=== PATIENT | female | born 1990 | race American Indian/Alaskan Native ===

== ENCOUNTER 2016-10-15 12:59 | Emergency (ER) | payer MEDICAID, OTHER ==
[2016-10-15 13:29] VITALS: BP 143/80
--- NOTE | 2016-10-15 14:19 | EDM.PDOC ---
[id number]: 18 WKS PREG, NO MOVEMENT 2 WKS Time Seen by Provider: 10/15/16 14:00 Source of Information: Reports: Patient History Limitations: Reports: No Limitations - History of Present Illness INITIAL COMMENTS - FREE TEXT/NARRATIVE: 26-year-old 5 para 4 female who is roughly 18 weeks gestation was feeling the baby move for the past week and a half but now has not had any movement for 2 days along with some spotting. No fevers or chills, no dysuria. Onset: Gradual (Over the past 2 days) Associated Symptoms: Reports: No Other Symptoms Lower Back Pain Score (Numeric/FACES): 6 - Related Data Allergies Allergy/AdvReac Type Severity Reaction Status Date / Time No Known Allergies Allergy Verified 10/15/16 13:30 Home Meds: Home Meds NK [No Known Home Meds] 02/29/16 [History] Past Medical History HEENT History: Reports: Impaired Vision Other HEENT History: wears glasses Respiratory History: Reports: Bronchitis, Recurrent Gastrointestinal History: Reports: Cholelithiasis PROSTHODONTIST History: Reports: , Other (See Below) Other OB/BYN History: early labor with 2nd. pregancy Musculoskeletal History: Reports: Fracture Other Musculoskeletal History: ankle Psychiatric History: Reports: Anxiety Hematologic History: Reports: Anemia - Past Surgical History HEENT Surgical History: Reports: None Respiratory Surgical History: Reports: None GI Surgical History: Reports: Cholecystectomy Musculoskeletal Surgical History: Reports: Other (See Below) Other Musculoskeletal Surgeries/Procedures:: broke left ankle at growth plate at age of 11 Dermatological Surgical History: Reports: None Social & Family History - Family History Family Medical History: Unobtainable - Tobacco Use Smoking Status *Q: Current Every Day Smoker Years of Tobacco use: 11 Packs/Tins Daily: 5 Used Tobacco, but Quit: No Second Hand Smoke Exposure: Yes - Caffeine Use Caffeine Use: Reports: Coffee, Tea - Recreational Drug Use Recreational Drug Use: No ED ROS GENERAL - Review of Systems Review Of Systems: See Below Constitutional: Denies: Fever Respiratory: Denies: Shortness of Breath, Cough Cardiovascular: Denies: Chest Pain GI/Abdominal: Denies: Abdominal Pain, Nausea, Vomiting Skin: Reports: No Symptoms Neurological: Denies: Headache ED EXAM - Physical Exam Exam: See Below Exam Limited By: No Limitations General Appearance: Alert, No Apparent Distress Respiratory/Chest: No Respiratory Distress GI/Abdominal Exam: Normal Bowel Sounds, Soft Heart Tones: Not Cotton Course - Vital Signs Last Recorded V/S: Last Vital Signs Temp 98 F 10/15/16 13:27 Pulse 75 10/15/16 13:27 Resp 16 10/15/16 13:27 BP 143/80 H 10/15/16 13:27 Pulse Ox 100 10/15/16 13:27 - Re-Assessments/Exams Free Text/Narrative Re-Assessment/Exam: 10/15/16 14:18 We attempted to find heart tones for reassurance but just weren't able to hear any. These would be expected to be found at 18 weeks. We will get an ultrasound to confirm the . 10/15/16 14:50 Ultrasound confirms a demise. This is discussed with the patient. I also discussed this with Kristin Suazo, who was marketing rotation associate for obstetrics. 10/15/16 15:23 Dr. Briones, OB on-call in [place] agreed to see the patient tomorrow morning to perform an induction. Patient will go to be admitted to [facility] in [place] at 7:30 AM. Departure - Departure Time of Disposition: 15:52 Disposition: Home, Self-Care 01 Condition: Good Clinical Impression: Incomplete , demise before 20 weeks with retention of fetus - Discharge Information Instructions: Miscarriage Referrals: PCP,None [Primary Care Provider] - Forms: ED Department Discharge Care Plan Goals: You need to go up to [facility] in [place] tomorrow morning to be admitted at 7:30 AM. If he started developing heavy bleeding or more pain, you may want to go up to [place] sooner and go through the emergency room.
--- NOTE | 2016-10-15 15:10 | US ---
OB Ltd 1 or More Fetus HISTORY: 18 weeks, spotting, no heart tones FINDINGS: A single intrauterine fetus is identified in right transverse presentation. No movement for ca rdiac activity is identified. No color Doppler blood flow is seen in the fetus. Amniotic fluid appea rs normal. The placenta is posterior with no evidence for placenta previa or abruption. measur ements correspond with an EGA of 16 weeks 4 days gestation. Menstrual age is 19 weeks 2 days. IMPRESSION: Intrauterine demise as above. Findings were given to Dr. Walters at the time of the exam..
== END 2016-10-15 15:53 | disposition home or self-care (01) ==
LOC: JP.ED 12:59
DX: O03.4 Incomplete spontaneous abortion without complication (principal); F17.210 Nicotine dependence, cigarettes, uncomplicated; Z90.49 Acquired absence of other specified parts of digestive tract
CPT/HCPCS: 76815; 76815-26; 99283

== ENCOUNTER 2016-11-16 13:00 | Emergency (ER) | payer MEDICAID, OTHER ==
--- NOTE | 2016-11-16 14:06 | EDM.PDOC ---
ED HPI GENERAL MEDICAL PROBLEM - General Chief Complaint: EXERCISE PHYSIOLOGIST CERTIFIED Problem Stated Complaint: EXCESSIVE BLEEDING Time Seen by Provider: 11/16/16 13:57 Source of Information: Reports: Patient History Limitations: Reports: No Limitations - History of Present Illness INITIAL COMMENTS - FREE TEXT/NARRATIVE: pt arrived with increased vag bleeding and abdomanal pain. She delivered a 18 week preg which did not survive about 1 month ago. Onset: Other ( last 2 days. ) Duration: Day(s):, Getting Worse Location: Reports: Abdomen, Other (pt is having pain in her loqwer abdoman. ) Associated Symptoms: Reports: Weakness, Other ( pt has generalized body aches. ) - Related Data Allergies Allergy/AdvReac Type Severity Reaction Status Date / Time No Known Allergies Allergy Verified 11/16/16 13:42 Home Meds: Home Meds NK [No Known Home Meds] 02/29/16 [History] Past Medical History HEENT History: Reports: Impaired Vision Other HEENT History: wears glasses Respiratory History: Reports: Bronchitis, Recurrent Gastrointestinal History: Reports: Cholelithiasis EXERCISE PHYSIOLOGIST CERTIFIED History: Reports: , Other (See Below) Other OB/BYN History: early labor with 2nd. pregancy Musculoskeletal History: Reports: Fracture Other Musculoskeletal History: ankle Psychiatric History: Reports: Anxiety Hematologic History: Reports: Anemia - Past Surgical History GI Surgical History: Reports: Cholecystectomy Musculoskeletal Surgical History: Reports: Other (See Below) Other Musculoskeletal Surgeries/Procedures:: broke left ankle at growth plate at age of 11 Social & Family History - Family History Family Medical History: Unobtainable - Tobacco Use Smoking Status *Q: Current Every Day Smoker Years of Tobacco use: 12 Packs/Tins Daily: 0.5 Used Tobacco, but Quit: No Second Hand Smoke Exposure: Yes - Caffeine Use Caffeine Use: Reports: Coffee, Soda - Recreational Drug Use Recreational Drug Use: No ED ROS GENERAL - Review of Systems Review Of Systems: See Below Constitutional: Reports: Chills, Other (pt feels like she has chills at times. ) HEENT: Reports: No Symptoms Respiratory: Reports: No Symptoms Cardiovascular: Reports: No Symptoms Endocrine: Reports: No Symptoms GI/Abdominal: Reports: Abdominal Pain, Other (pt feels like he hs increased discomfort over her lower abdoman. She feels achy all over and has had chills at times. She is passing large clots which is new for her Yesterday she pass some solid material that looked like tissue. ) : Reports: No Symptoms Musculoskeletal: Reports: No Symptoms Skin: Reports: No Symptoms Neurological: Reports: No Symptoms ED EXAM - Physical Exam Exam: See Below Text/Narrative:: Pt is uncomfortable in her lower abdoman. She delivered 1 mo ago a 18 week preg which did not survive. Exam Limited By: No Limitations General Appearance: Alert, Anxious, Moderate Distress Ears: Normal TMs Nose: Normal Inspection Throat/Mouth: Normal Inspection Head: Atraumatic Neck: Normal Inspection Respiratory/Chest: No Respiratory Distress Cardiovascular: Regular Rate, Rhythm GI/Abdominal Exam: Tender, Other (Pt has difuse tenderness accross the lower abdoman. ) Rectal Exam: Deferred (Female) Exam: Other ( A pelvic exam was done on the pt. She had no tissue present. She had passed some large clots in the bathroom while she was here. She was markedly tender on pelvic exam when her cervix was moved. She was bleeding generously. ) Course - Vital Signs Last Recorded V/S: Last Vital Signs Temp 36.3 C 11/16/16 13:43 Pulse 101 H 11/16/16 16:33 Resp 16 11/16/16 13:25 BP 123/89 11/16/16 16:33 Pulse Ox 100 11/16/16 16:33 - Orders/Labs/Meds Orders: Active Orders 24 hr Category Date Time Status Pelvis Non OB Comp [US] Stat Exams 11/16/16 14:07 Taken Transvaginal Non OB [US] Stat Exams 11/16/16 14:07 Taken Labs: Laboratory Tests 11/16/16 11/16/16 11/16/16 Range/Units 14:12 14:12 15:05 WBC 10.9 (4.5-11.0) K/uL RBC 4.68 (3.30-5.50) M/uL Hgb 10.2 L (12.0-15.0) g/dL Hct 33.1 L (36.0-48.0) % MCV 71 L (80-98) fL MCH 22 L (27-31) pg MCHC 31 L (32-36) % Plt Count 414 H (150-400) K/uL Neut % (Auto) 68 H (36-66) % Lymph % (Auto) 23 L (24-44) % [place] % (Auto) 6 (2-6) % Eos % (Auto) 3 (2-4) % Baso % (Auto) 0 (0-1) % Sodium 141 (140-148) mmol/L Potassium 3.6 (3.6-5.2) mmol/L Chloride 108 (100-108) mmol/L Carbon Dioxide 27 (21-32) mmol/L Anion Gap 5.8 (5.0-14.0) mmol/L BUN 8 (7-18) mg/dL Creatinine 0.8 (0.6-1.0) mg/dL Est Cr Clr Drug Dosing 101.81 mL/min Estimated GFR (MDRD) > 60 (>60) Glucose 89 (74-106) mg/dL Calcium 8.4 L (8.5-10.1) mg/dL Total Bilirubin 0.2 D (0.2-1.0) mg/dL AST 15 (15-37) U/L ALT 24 (12-78) U/L Alkaline Phosphatase 90 (46-116) U/L C-Reactive Protein (0.0-0.3) mg/dL Total Protein 7.4 (6.4-8.2) g/dL Albumin 3.3 L (3.4-5.0) g/dL Globulin 4.1 H (2.3-3.5) g/dL Albumin/Globulin Ratio 0.8 L (1.2-2.2) Urine Color Red Urine Appearance Turbid Urine pH 5.0 (4.5-8.0) Ur Specific [place] 1.010 (1.008-1.030) Urine Protein 30 H (NEGATIVE) mg/dL Urine Glucose (UA) Normal (NEGATIVE) mg/dL Urine Ketones Negative (NEGATIVE) mg/dL Urine Occult Blood Large (NEGATIVE) Urine Nitrite Negative (NEGATIVE) Urine Bilirubin Negative (NEGATIVE) Urine Urobilinogen Normal (NORMAL) mg/dL Ur Leukocyte Esterase Negative (NEGATIVE) Urine RBC Packed H (0-5) Urine WBC 10-20 H (0-5) Ur Epithelial Cells Few Amorphous Sediment Few Urine Bacteria Many Urine Mucus Few 11/16/16 Range/Units 15:11 WBC (4.5-11.0) K/uL RBC (3.30-5.50) M/uL Hgb (12.0-15.0) g/dL Hct (36.0-48.0) % MCV (80-98) fL MCH (27-31) pg MCHC (32-36) % Plt Count (150-400) K/uL Neut % (Auto) (36-66) % Lymph % (Auto) (24-44) % [place] % (Auto) (2-6) % Eos % (Auto) (2-4) % Baso % (Auto) (0-1) % Sodium (140-148) mmol/L Potassium (3.6-5.2) mmol/L Chloride (100-108) mmol/L Carbon Dioxide (21-32) mmol/L Anion Gap (5.0-14.0) mmol/L BUN (7-18) mg/dL Creatinine (0.6-1.0) mg/dL Est Cr Clr Drug Dosing mL/min Estimated GFR (MDRD) (>60) Glucose (74-106) mg/dL Calcium (8.5-10.1) mg/dL Total Bilirubin (0.2-1.0) mg/dL AST (15-37) U/L ALT (12-78) U/L Alkaline Phosphatase (46-116) U/L C-Reactive Protein 1.28 H (0.0-0.3) mg/dL Total Protein (6.4-8.2) g/dL Albumin (3.4-5.0) g/dL Globulin (2.3-3.5) g/dL Albumin/Globulin Ratio (1.2-2.2) Urine Color Urine Appearance Urine pH (4.5-8.0) Ur Specific [place] (1.008-1.030) Urine Protein (NEGATIVE) mg/dL Urine Glucose (UA) (NEGATIVE) mg/dL Urine Ketones (NEGATIVE) mg/dL Urine Occult Blood (NEGATIVE) Urine Nitrite (NEGATIVE) Urine Bilirubin (NEGATIVE) Urine Urobilinogen (NORMAL) mg/dL Ur Leukocyte Esterase (NEGATIVE) Urine RBC (0-5) Urine WBC (0-5) Ur Epithelial Cells Amorphous Sediment Urine Bacteria Urine Mucus Meds: Medications Discontinued Medications Generic Name Dose Route Start Last Admin Trade Name Freq PRN Reason Stop Dose Admin Ceftriaxone Sodium 1 gm/ 0 gm 11/16/16 15:41 11/16/16 15:57 Lidocaine HCl 2.1 ml IM 11/16/16 15:42 1 inj ONETIME ONE Administration - Re-Assessments/Exams Free Text/Narrative Re-Assessment/Exam: 11/17/16 07:25 A US was obtained which did not reveal signs of a large amount of retained tissue. Her wbc was not elevated. Her hg was in the 10 range. 11/17/16 07:26 Her urine did have alot of bacteria, the nitrite was neg. Departure - Departure Time of Disposition: 15:37 Disposition: Home, Self-Care 01 Condition: Fair Clinical Impression: Endometritis following delivery, Anemia - Discharge Information Instructions: Anemia, Nonspecific, Endometriosis Referrals: Nivia Rodríguez PA [Primary Care Provider] - Forms: ED Department Discharge Care Plan Goals: appt with regular obgyn on Friday or Friday, a copy of Us to go with pt. augmentin 875 1 tab bid for 10 days., rtc if bleeding should get heavier, norco 5/325 q6h prn for severe pain #6, otherwise use tylenol or motrin. - My Orders Last 24 Hours: My Active Orders 11/16/16 14:07 Pelvis Non OB Comp [US] Stat Transvaginal Non OB [US] Stat - Assessment/Plan Last 24 Hours: My Active Orders 11/16/16 14:07 Pelvis Non OB Comp [US] Stat Transvaginal Non OB [US] Stat
[2016-11-16] MEDS ORDERED: cefTRIAXone 1 GM, Lidocaine 1% 2.1 ML IM ONE ×2 (15:41)
[2016-11-16 16:34] VITALS: BP 123/89
== END 2016-11-16 17:15 | disposition home or self-care (01) ==
LOC: JP.ED 13:00
DX: O86.12 Endometritis following delivery (principal); D64.9 Anemia, unspecified; F17.210 Nicotine dependence, cigarettes, uncomplicated; F41.9 Anxiety disorder, unspecified; Z90.49 Acquired absence of other specified parts of digestive tract; Z3A.18 18 weeks gestation of pregnancy
CPT/HCPCS: 36415; 76830; 76856; 80053; 81001; 85025; 86140; 96372; 99284; J0696

== ENCOUNTER 2017-02-23 15:00 | Emergency (ER) | payer MEDICAID, OTHER ==
[2017-02-23 15:24] VITALS: BP 137/74
--- NOTE | 2017-02-23 16:02 | EDM.PDOC ---
ED HPI GENERAL MEDICAL PROBLEM - General Chief Complaint: AUDITOR/QUALITY Problem Stated Complaint: PELVIC PAIN Time Seen by Provider: 02/23/17 16:02 Source of Information: Reports: Patient History Limitations: Reports: No Limitations - History of Present Illness INITIAL COMMENTS - FREE TEXT/NARRATIVE: pt notes swelling of the rt labia. She is tender at the pelvic rim. She has not had a fever. She has noted some cramping in the abdoman. Onset: Gradual Duration: Day(s): Location: Reports: Other ( swelling of the rt labia. ) Associated Symptoms: Reports: No Other Symptoms Pelvic Pain Score (Numeric/FACES): 4 - Related Data Allergies Allergy/AdvReac Type Severity Reaction Status Date / Time No Known Allergies Allergy Verified 11/16/16 13:42 Home Meds: Home Meds NK [No Known Home Meds] 02/29/16 [History] Past Medical History HEENT History: Reports: Impaired Vision Other HEENT History: wears glasses Respiratory History: Reports: Bronchitis, Recurrent Gastrointestinal History: Reports: Cholelithiasis AUDITOR/QUALITY History: Reports: , Other (See Below) Other OB/BYN History: early labor with 2nd. pregancy, pt. had miscarriage in at 18 weeks Musculoskeletal History: Reports: Fracture Other Musculoskeletal History: ankle Psychiatric History: Reports: Anxiety Hematologic History: Reports: Anemia - Past Surgical History GI Surgical History: Reports: Cholecystectomy Musculoskeletal Surgical History: Reports: Other (See Below) Other Musculoskeletal Surgeries/Procedures:: broke left ankle at growth plate at age of 11 Dermatological Surgical History: Reports: None Social & Family History - Family History Family Medical History: Unobtainable - Tobacco Use Smoking Status *Q: Current Every Day Smoker Years of Tobacco use: 12 Packs/Tins Daily: 1 Used Tobacco, but Quit: No Second Hand Smoke Exposure: Yes - Caffeine Use Caffeine Use: Reports: Coffee, Soda - Recreational Drug Use Recreational Drug Use: No ED ROS GENERAL - Review of Systems Review Of Systems: See Below Constitutional: Reports: No Symptoms HEENT: Reports: No Symptoms Respiratory: Reports: No Symptoms Cardiovascular: Reports: No Symptoms Endocrine: Reports: No Symptoms GI/Abdominal: Reports: No Symptoms : Reports: Other ( swelling of the rt labia. ) Musculoskeletal: Reports: No Symptoms Skin: Reports: No Symptoms Neurological: Reports: No Symptoms ED EXAM, GI/ABD - Physical Exam Exam: See Below Text/Narrative:: pt has crampy abdomanal pain, she has no change in discharge. She has swelling of the rt labia. Exam Limited By: No Limitations General Appearance: Alert, Anxious Eyes: Bilateral: Normal Appearance, EOMI Ears: Normal TMs Nose: Normal Inspection Throat/Mouth: Normal Inspection Head: Atraumatic Neck: Normal Inspection Respiratory/Chest: No Respiratory Distress Cardiovascular: Regular Rate, Rhythm GI/Abdominal Exam: Other ( soft minimal tenderness) (Female) Exam: Deferred Rectal (Female) Exam: Deferred Back Exam: Normal Inspection Course - Vital Signs Last Recorded V/S: Last Vital Signs Temp 36.9 C 02/23/17 15:26 Pulse 72 02/23/17 15:26 Resp 16 02/23/17 15:26 BP 137/74 02/23/17 15:26 Pulse Ox 99 02/23/17 15:26 - Orders/Labs/Meds Orders: Active Orders 24 hr Category Date Time Status CULTURE URINE [RM] Stat Lab 02/23/17 17:20 Uncollected Labs: Laboratory Tests 02/23/17 02/23/17 Range/Units 16:33 16:39 WBC 11.1 H (4.5-11.0) K/uL RBC 4.75 (3.30-5.50) M/uL Hgb 9.5 L (12.0-15.0) g/dL Hct 31.6 L (36.0-48.0) % MCV 67 L (80-98) fL MCH 20 L (27-31) pg MCHC 30 L (32-36) % Plt Count 487 H (150-400) K/uL Neut % (Auto) 64 (36-66) % Lymph % (Auto) 27 (24-44) % [place] % (Auto) 7 H (2-6) % Eos % (Auto) 1 L (2-4) % Baso % (Auto) 0 (0-1) % Urine Color Yellow Urine Appearance Cloudy Urine pH 7.0 (4.5-8.0) Ur Specific [employer] [employer] 1.010 (1.008-1.030) Urine Protein Negative (NEGATIVE) mg/dL Urine Glucose (UA) Normal (NEGATIVE) mg/dL Urine Ketones Negative (NEGATIVE) mg/dL Urine Occult Blood Negative (NEGATIVE) Urine Nitrite Negative (NEGATIVE) Urine Bilirubin Negative (NEGATIVE) Urine Urobilinogen Normal (NORMAL) mg/dL Ur Leukocyte Esterase Moderate (NEGATIVE) Urine RBC 0-5 (0-5) Urine WBC 5-10 H (0-5) Ur Epithelial Cells Few Amorphous Sediment Rare Urine Bacteria Few Urine Mucus Few Urine Other See note - Re-Assessments/Exams Free Text/Narrative Re-Assessment/Exam: 02/23/17 17:24 pt did not have a sig wbc elevation. Her melissa was positive, Her urine had a few wbcs and this was cultured. Departure - Departure Time of Disposition: 16:27 Disposition: Home, Self-Care 01 Condition: Fair Clinical Impression: Yeast infection, Labial swelling - Discharge Information Instructions: Vaginal Yeast Infection, Adult Referrals: PCP,None [Primary Care Provider] - Forms: ED Department Discharge Care Plan Goals: tub soak twice daily monostat vag cream, difluran 100mg 1 tab now, have her own provider check on wed when she is seen. - My Orders Last 24 Hours: My Active Orders 02/23/17 17:20 CULTURE URINE [RM] Stat - Assessment/Plan Last 24 Hours: My Active Orders 02/23/17 17:20 CULTURE URINE [RM] Stat
== END 2017-02-23 17:30 | disposition home or self-care (01) ==
LOC: JP.ED 15:00
DX: B37.3 Candidiasis of vulva and vagina (principal); F17.210 Nicotine dependence, cigarettes, uncomplicated
CPT/HCPCS: 36415; 81001; 85025; 87210; 99284

== ENCOUNTER 2018-04-14 17:49 | Emergency (ER) | payer OTHER ==
[2018-04-14] MEDS ORDERED: Bupivacaine 0.5% 10 ML SDV INJECT ONE (17:51)
[2018-04-14 17:54] VITALS: BP 132/69
--- NOTE | 2018-04-14 18:32 | EDM.PDOC ---
ED HPI GENERAL MEDICAL PROBLEM - General Chief Complaint: Laceration Stated Complaint: SLAMMED FINGER IN DOOR Time Seen by Provider: 04/14/18 18:05 Source of Information: Reports: Patient, EMS History Limitations: Reports: No Limitations - History of Present Illness INITIAL COMMENTS - FREE TEXT/NARRATIVE: 27-year-old female slammed the middle finger of her left hand in a sliding van door. She sustained a crush injury and laceration to the distal finger. No other injury. Onset: Sudden Duration: Hour(s): (Within the last 2 hours) Location: Reports: Upper Extremity, Left Associated Symptoms: Reports: No Other Symptoms Left Finger-Middle Pain Score (Numeric/FACES): 0 - Related Data Allergies Allergy/AdvReac Type Severity Reaction Status Date / Time No Known Allergies Allergy Verified 04/14/18 17:51 Home Meds: Home Meds NK [No Known Home Meds] 02/29/16 [History] Past Medical History HEENT History: Reports: Impaired Vision Other HEENT History: wears glasses Respiratory History: Reports: Bronchitis, Recurrent Gastrointestinal History: Reports: Cholelithiasis [employer] History: Reports: , Other (See Below) Other [employer] History: early labor with 2nd. pregancy, pt. had miscarriage in at 18 weeks Musculoskeletal History: Reports: Fracture Other Musculoskeletal History: ankle Psychiatric History: Reports: Anxiety Hematologic History: Reports: Anemia - Past Surgical History GI Surgical History: Reports: Cholecystectomy Musculoskeletal Surgical History: Reports: Other (See Below) Other Musculoskeletal Surgeries/Procedures:: broke left ankle at growth plate at age of 11 Social & Family History - Family History Family Medical History: Unobtainable - Tobacco Use Smoking Status *Q: Current Every Day Smoker Years of Tobacco use: 12 Packs/Tins Daily: 0.5 Second Hand Smoke Exposure: Yes - Caffeine Use Caffeine Use: Reports: Coffee - Recreational Drug Use Recreational Drug Use: No ED ROS GENERAL - Review of Systems Review Of Systems: See Below Constitutional: Denies: Fever, Chills Respiratory: Denies: Shortness of Breath Cardiovascular: Denies: Chest Pain GI/Abdominal: Denies: Nausea, Vomiting Psychiatric: Reports: Anxiety ED EXAM, SKIN/RASH Exam: See Below Exam Limited By: No Limitations General Appearance: Alert, Anxious Respiratory/Chest: No Respiratory Distress Extremities: Other (Remainder of exam is limited to the left hand. The middle finger has a distal crush injury, the nail partially avulsed, and has obvious trauma to the nail bed. After the nail was removed there was a 1 cm transverse and somewhat arced nailbed laceration) Course - Vital Signs Last Recorded V/S: Last Vital Signs Temp 99.0 F 04/14/18 19:05 Pulse 111 H 04/14/18 19:05 Resp 16 04/14/18 19:05 BP 132/69 04/14/18 19:05 Pulse Ox 97 04/14/18 19:05 - Orders/Labs/Meds Orders: Active Orders 24 hr Category Date Time Status Fingers Third Digit Lt F2 [CR] Stat Exams 04/14/18 18:28 Taken Fingers Third Digit Lt F2 [CR] Stat Exams 04/14/18 18:28 Taken Meds: Medications Discontinued Medications Generic Name Dose Route Start Last Admin Trade Name Freq PRN Reason Stop Dose Admin Bacitracin 1 dose 04/14/18 18:33 04/14/18 18:49 Bacitracin Oint 1 Gm TOP 04/14/18 18:34 1 dose ONETIME ONE Administration Bupivacaine HCl 10 ml 04/14/18 17:51 04/14/18 18:29 Sensorcaine-Mpf 0.5% INJECT 04/14/18 17:52 10 ml ONETIME ONE Administration - Re-Assessments/Exams Free Text/Narrative Re-Assessment/Exam: 04/14/18 18:31 An x-ray of the finger was taken which showed a displaced distal fracture of the tuft of the middle finger. During repair a Marcaine digital block was done, the wound was cleaned thoroughly, and attempt to reduce the fracture and realign the nail bed was made. This was done after the fingernail was removed. 3 6-0 Vicryl sutures were used to reapproximate the nail bed, and with a 3-0 Ethilon suture the nail was replaced. A post reduction and post repair x-ray was obtained. 04/14/18 19:00 Post reduction x-ray looks real good, the tuft is near anatomical with its reduction. She'll be placed on cephalexin 500 3 times a day, asked to use anti- inflammatories for pain control and given 10 extra [place] for breakthrough pain. A tube gauze was placed on the finger now have her recheck with orthopedics tomorrow. Departure - Departure Time of Disposition: 19:19 Disposition: Home, Self-Care 01 Condition: Good Clinical Impression: Fracture of phalanx of digit of hand Qualifiers: Encounter type: initial encounter Fracture type: open Qualified Code(s): S62.609B - Fracture of unspecified phalanx of unspecified finger, initial encounter for open fracture Nailbed laceration, finger Qualifiers: Encounter type: initial encounter Qualified Code(s): S61.319A - Laceration without foreign body of unspecified finger with damage to nail, initial encounter - Discharge Information Instructions: Laceration Care, Adult Referrals: PCP,None [Primary Care Provider] - Forms: ED Department Discharge Care Plan Goals: Call the orthopedic clinic tomorrow morning to get a follow-up time to recheck her finger with [facility]. Take antibiotic as prescribed, a regular dose of ibuprofen or naproxen will help and add stronger pain medications if needed. - My Orders Last 24 Hours: My Active Orders 04/14/18 18:28 Fingers Third Digit Lt F2 [CR] Stat Fingers Third Digit Lt F2 [CR] Stat - Assessment/Plan Last 24 Hours: My Active Orders 04/14/18 18:28 Fingers Third Digit Lt F2 [CR] Stat Fingers Third Digit Lt F2 [CR] Stat
[2018-04-14] MEDS ORDERED: Bacitracin Oint 1 GM U/D Packet TOP ONE (18:33)
--- NOTE | 2018-04-15 10:50 | CRLCR ---
INDICATION: Status post fracture terminal phalanx left 3rd finger; status post reduction. Comparison: Radiographic examination of the left 3rd finger same day at 6:01 p.m. Findings: Fracture involving the tuft of the terminal phalanx of the left 3rd finger with better opposition when compared to the pre reduction radiographs. There is evidence of comminution. Impression : Fracture tuft the terminal phalanx left 3rd finger with better opposition when compared to the pre reduction film. Dictated by Pam Asencio MD @ Apr 15 2018 10:09AM Signed by Dr. Pam Asencio @ Apr 15 2018 10:12AM
== END 2018-04-14 19:19 | disposition home or self-care (01) ==
LOC: JP.ED 17:49
DX: S62.633A Displaced fracture of distal phalanx of left middle finger, initial encounter for closed fracture (principal); S61.312A Laceration without foreign body of right middle finger with damage to nail, initial encounter; F17.210 Nicotine dependence, cigarettes, uncomplicated; X58.XXXA Exposure to other specified factors, initial encounter
CPT/HCPCS: 11760; 26755; 73140; 99284; J3490

== ENCOUNTER 2020-06-01 22:13 | Emergency (ER) | payer MEDICAID ==
[2020-06-01] MEDS ORDERED: Bupivacaine 0.5%/EPINEPHrine 1:200,000 1.8 ML Cartridge INJECT ONE (22:28)
--- NOTE | 2020-06-01 22:28 | EDM.PDOC ---
ED HPI GENERAL MEDICAL PROBLEM - General Chief Complaint: ENT Problem Stated Complaint: TOOTH PAIN Time Seen by Provider: 06/01/20 22:25 Source of Information: Reports: Patient, Old Records History Limitations: Reports: No Limitations - History of Present Illness INITIAL COMMENTS - FREE TEXT/NARRATIVE: Nivia is a 29-year-old female to the ED for evaluation of dental pain and swelling. The patient states that she has been having on and off issues with the #32 and was seen in the clinic on Friday at which time she was started on Augmentin. The tooth pain is continued to worsen to the point now where she has a hard time chewing, swallowing, or sleeping. She is able to swallow without difficulty except for the shooting stabbing pain. He is able to handle her secretions without difficulty. She does have a history for dental pain in this tooth prior. She has not been able to get into the dentist in [place] as they are months out from seeing patients. She is not been able to get into emergency dentistry either. Denies any fever or chills, cough or shortness of breath, chest pain or back pain. Right Oral/Mouth Pain Score (Numeric/FACES): 9 - Related Data Allergies Allergy/AdvReac Type Severity Reaction Status Date / Time No Known Allergies Allergy Verified 04/14/18 17:51 Home Meds: Home Meds NK [No Known Home Meds] 02/29/16 [History] Past Medical History HEENT History: Reports: Impaired Vision Other HEENT History: wears glasses Respiratory History: Reports: Bronchitis, Recurrent Gastrointestinal History: Reports: Cholelithiasis TUBE WINDER History: Reports: , Other (See Below) Other TUBE WINDER History: early labor with 2nd. pregancy, pt. had miscarriage in 10/24 at 18 weeks Musculoskeletal History: Reports: Fracture Other Musculoskeletal History: ankle Psychiatric History: Reports: Anxiety Hematologic History: Reports: Anemia - Past Surgical History GI Surgical History: Reports: Cholecystectomy Musculoskeletal Surgical History: Reports: Other (See Below) Other Musculoskeletal Surgeries/Procedures:: broke left ankle at growth plate at age of 11 Social & Family History - Family History Family Medical History: Unobtainable - Caffeine Use Caffeine Use: Reports: Coffee ED ROS ENT - Review of Systems Review Of Systems: See Below Constitutional: Reports: No Symptoms HEENT: Reports: Dental Pain Respiratory: Reports: No Symptoms Cardiovascular: Reports: No Symptoms Endocrine: Reports: No Symptoms GI/Abdominal: Reports: No Symptoms : Reports: No Symptoms Musculoskeletal: Reports: No Symptoms Skin: Reports: No Symptoms Neurological: Reports: No Symptoms Psychiatric: Reports: No Symptoms Hematologic/Lymphatic: Reports: No Symptoms Immunologic: Reports: No Symptoms ED EXAM, ENT - Physical Exam Exam: See Below Exam Limited By: No Limitations General Appearance: Alert, Moderate Distress Eye Exam: Bilateral Eye: EOMI, PERRL Mouth/Throat: Normal Lips, Normal Oropharynx, Dental Pain (Pain and swelling around tooth #32. There is no visible abscess to I&D. There is no significant gingival erythema but there is swelling.), Dental Tenderness Head: Atraumatic, Normocephalic Neck: Normal Inspection, Supple, Non-Tender, Full Range of Motion. No: Lymphadenopathy (R), Lymphadenopathy (L) Respiratory/Chest: No Respiratory Distress, Lungs Clear, Normal Breath Sounds Course - Orders/Labs/Meds Meds: Medications Discontinued Medications Generic Name Dose Route Start Last Admin Trade Name Bernardq PRN Reason Stop Dose Admin Bupivacaine HCl/Epinephrine Bitart 1.8 ml 06/01/20 22:28 Bupivacaine 0.5%/Epinephrine 1:200,000 1.8 Ml Cartridge INJECT 06/01/20 22:29 ONETIME ONE Clindamycin HCl 300 mg 06/01/20 22:29 Clindamycin Hcl 150 Mg Cap PO 06/01/20 22:30 ONETIME ONE - Re-Assessments/Exams Free Text/Narrative Re-Assessment/Exam: 06/01/20 22:39 I discussed treatment options with the patient and we have elected for a right inferior alveolar dental block temp to get the pain under control of tooth #32. In addition, we will switch her antibiotic from Augmentin to clindamycin 300 mg 3 times daily. I will also send her out with prescription for Toradol 10 mg 4 times daily and a few hydrocodone 5/325 mg tablets #4 for breakthrough pain. We will also place a referral to the [facility] dental clinic. This will hopefully be a shorter wait time then through [place] or [facility]. Departure - Departure Time of Disposition: 22:53 Disposition: Home, Self-Care 01 Clinical Impression: Dental abscess - Discharge Information *PRESCRIPTION DRUG MONITORING PROGRAM REVIEWED*: Yes *COPY OF PRESCRIPTION DRUG MONITORING REPORT IN PATIENT JORGITO: No Instructions: Dental Abscess, [id number] Referrals: Karuna Lira CHIEF CARDIOPULMONARY TECHNOLOGIST [Primary Care Provider] - Forms: ED Department Discharge Care Plan Goals: Dental block should with lasted least 24 to 48 hours. Hopefully during this time the antibiotic will have kicked in enough to reduce the swelling and pain. I have prescribed Toradol 10 mg every 6 hours for pain control. You may use 1 hydrocodone for moderate to severe pain if the Toradol is not adequately controlling your symptoms. I have placed a referral for you to be seen in the [facility] dental clinic. - Problem List & Annotations (1) Dental abscess SNOMED Code(s): 006687781 Code(s): K04.7 - PERIAPICAL ABSCESS WITHOUT SINUS Status: Acute Priority: Medium Current Visit: Yes - Problem List Review Problem List Initiated/Reviewed/Updated: Yes
[2020-06-01] MEDS ORDERED: Clindamycin HCl 150 MG Cap PO ONE (22:29)
[2020-06-01 22:40] VITALS: BP 145/78; PULSE 81
== END 2020-06-01 23:13 | disposition home or self-care (01) ==
LOC: JP.ED 22:13
DX: K04.7 Periapical abscess without sinus (principal); Z90.49 Acquired absence of other specified parts of digestive tract
CPT/HCPCS: 64400; 99282; A9270; J3490

== ENCOUNTER 2020-10-28 22:23 | Emergency (ER) | payer MEDICAID ==
[2020-10-28 22:38] VITALS: BP 135/86; PULSE 80
--- NOTE | 2020-10-29 00:33 | CRLCT ---
For Patients: As a result of the Cures Act, medical imaging exams and procedure reports are released immediately into your electronic medical record. You may view this report before your referring provider. If you have questions, please contact your health care provider. INDICATION: Left lower abdominal pain. CT ABDOMEN AND PELVIS WITHOUT CONTRAST TECHNIQUE: Multidetector CT imaging was performed through the abdomen and pelvis without intravenous contrast administration. Coronal and sagittal reconstructions were generated. COMPARISON: None. FINDINGS: Lower chest: Lung bases are clear. Liver: Within normal limits. Gallbladder and bile ducts: Status post cholecystectomy. No biliary dilation identified. Pancreas: Unremarkable. Spleen: Normal. Adrenals: No nodules or masses. Kidneys, ureters, and urinary bladder: No urinary tract stones or hydronephrosis. Small hypodensity at the lower pole of the right kidney likely representing a cyst. No bladder mass or definite wall thickening. Gastrointestinal tract and abdominal wall: Normal caliber small bowel without wall thickening or obstruction. The appendix is normal. There are scattered colon diverticula without evidence of diverticulitis. Very small fat-containing umbilical hernia. Vascular structures: Normal for age. Peritoneum: No free air, abscess, or significant free fluid. Lymph nodes: No pathologically enlarged nodes identified. Reproductive organs: Status post hysterectomy. No pelvic masses. Bones: Mild degenerative disc disease at L5-S1. IMPRESSION: 1. No acute abnormality identified. No urinary tract stones or hydronephrosis. No cause for the patient`s symptoms is demonstrated. 2. Nonacute findings as detailed above. ANALIA THOMPSON MD [employer] Dictated by Dexter Thompson MD @ 10/29/2020 12:30:43 AM Please note that all CT scans at this facility use dose modulation, iterative reconstruction, and/or weight-based dosing when appropriate to reduce radiation dose to as low as reasonably achievable. Dictated by: Dexter Thompson MD @ 10/29/2020 00:32:44 (Electronically Signed)
--- NOTE | 2020-10-29 00:49 | EDM.PDOC ---
ED HPI GENERAL MEDICAL PROBLEM - General Chief Complaint: Gastrointestinal Problem Stated Complaint: DIVERTICULITIS, NAUSEA Time Seen by Provider: 10/28/20 23:45 Source of Information: Reports: Patient, Family History Limitations: Reports: No Limitations - History of Present Illness INITIAL COMMENTS - FREE TEXT/NARRATIVE: 30-year-old female with a chronic persistent lower abdominal pain, worsening especially on the left side. She does have a history of endometriosis and diverticulosis, she was at the urgent care clinic yesterday and urine was negative. A CT scan 2 months ago was negative other than diverticulosis. No fevers or chills, no significant bowel changes such as diarrhea or constipation. Onset: Gradual Duration: Week(s):, Chronic Location: Reports: Abdomen (Especially the lower abdomen, particularly the left side) Associated Symptoms: Reports: Malaise. Denies: Chest Pain, Cough, Fever/Chills, Headaches, Loss of Appetite, Nausea/Vomiting, Shortness of Breath Left Lower Abdomen Pain Score (Numeric/FACES): 5 - Related Data Allergies Allergy/AdvReac Type Severity Reaction Status Date / Time No Known Allergies Allergy Verified 10/28/20 23:31 Home Meds: Home Meds NK [No Known Home Meds] 02/29/16 [History] Past Medical History HEENT History: Reports: Impaired Vision Other HEENT History: wears glasses Respiratory History: Reports: Bronchitis, Recurrent Gastrointestinal History: Reports: Cholelithiasis DOG DAY CARE ATTENDANT History: Reports: , Spontaneous , Other (See Below) Other DOG DAY CARE ATTENDANT History: early labor with 2nd. pregancy, pt. had miscarriage in 10/24 at 18 weeks Musculoskeletal History: Reports: Fracture Other Musculoskeletal History: ankle Psychiatric History: Reports: Anxiety Hematologic History: Reports: Anemia - Infectious Disease History Infectious Disease History: Reports: Chicken Pox, Shingles - Past Surgical History GI Surgical History: Reports: Cholecystectomy Female Surgical History: Reports: Hysterectomy Musculoskeletal Surgical History: Reports: Other (See Below) Other Musculoskeletal Surgeries/Procedures:: broke left ankle at growth plate at age of 11, repaired Social & Family History - Family History Family Medical History: Unobtainable - Tobacco Use Tobacco Use Status *Q: Light Tobacco User Years of Tobacco use: 15 Packs/Tins Daily: 0.5 - Caffeine Use Caffeine Use: Reports: Coffee, Energy Drinks - Recreational Drug Use Recreational Drug Use: No ED ROS GENERAL - Review of Systems Review Of Systems: See Below Constitutional: Reports: Malaise. Denies: Fever, Chills HEENT: Reports: No Symptoms Respiratory: Reports: No Symptoms Cardiovascular: Reports: No Symptoms GI/Abdominal: Reports: Abdominal Pain. Denies: Constipation, Diarrhea : Reports: No Symptoms Musculoskeletal: Reports: No Symptoms Skin: Reports: No Symptoms Neurological: Reports: No Symptoms ED EXAM, GI/ABD - Physical Exam Exam: See Below Exam Limited By: No Limitations General Appearance: Alert, Anxious, Mild Distress (Looks fairly uncomfortable) Eyes: Bilateral: Normal Appearance (No jaundice) Head: Atraumatic Respiratory/Chest: No Respiratory Distress, Lungs Clear Cardiovascular: Regular Rate, Rhythm. No: Tachycardia GI/Abdominal Exam: Tender (Fairly tender to palpation in the lower abdomen especially the left side, mild guarding) Extremities: Normal Inspection Neurological: Alert, Oriented Psychiatric: Anxious Skin Exam: Warm, Dry Course - Vital Signs Last Recorded V/S: Last Vital Signs Temp 97.5 F 10/28/20 23:32 Pulse 80 10/28/20 23:32 Resp 16 10/28/20 23:32 BP 135/86 10/28/20 23:32 Pulse Ox 100 10/28/20 23:32 - Orders/Labs/Meds Labs: Laboratory Tests 10/28/20 10/28/20 Range/Units 23:40 23:40 WBC 15.1 H (4.5-11.0) K/uL RBC 4.77 (3.30-5.50) M/uL Hgb 13.0 D (12.0-15.0) g/dL Hct 39.2 (36.0-48.0) % MCV 82 (80-98) fL MCH 27 (27-31) pg MCHC 33 (32-36) % Plt Count 383 (150-400) K/uL Neut % (Auto) 68.7 H (36-66) % Lymph % (Auto) 22.0 L (24-44) % [place] % (Auto) 8.0 H (2-6) % Eos % (Auto) 1.0 L (2-4) % Baso % (Auto) 0.3 (0-1) % Sodium 141 (140-148) mmol/L Potassium 3.7 (3.6-5.2) mmol/L Chloride 105 (100-108) mmol/L Carbon Dioxide 27 (21-32) mmol/L Anion Gap 8.6 (5.0-14.0) mmol/L BUN 14 (7-18) mg/dL Creatinine 0.6 (0.6-1.0) mg/dL Est Cr Clr Drug Dosing 130.90 mL/min Estimated GFR (MDRD) > 60 (>60) Glucose 86 (74-106) mg/dL Calcium 9.1 (8.5-10.1) mg/dL - Re-Assessments/Exams Free Text/Narrative Re-Assessment/Exam: 10/29/20 00:54 CBC and CMP were obtained. White count was elevated at 15,[address] the abdomen to rule out diverticulitis was obtained. This was completely normal. Patient was discharged with 10 doses of Toradol to take through the weekend, and I strongly advised her to contact her DOG DAY CARE ATTENDANT or surgery department of her clinic to discuss possible laparoscopy to assess for scar tissue or endometriosis causing discomfort. A colonoscopy may also be worthwhile. Departure - Departure Time of Disposition: 01:01 Disposition: Home, Self-Care 01 Clinical Impression: Abdominal pain Qualifiers: Abdominal location: left lower quadrant Qualified Code(s): R10.32 - Left lower quadrant pain - Discharge Information Instructions: Abdominal Pain, Adult, [id number] Referrals: PCP,None [Primary Care Provider] - Forms: ED Department Discharge Care Plan Goals: Take 1 Toradol every 6-8 hours over the next 2 to 3 days, and call the clinic on Friday morning to discuss with DOG DAY CARE ATTENDANT or surgery the possibility of getting a procedure to assess your endometriosis or scarring in your abdomen. Sepsis Event Note (ED) - Evaluation Sepsis Screening Result: No Definite Risk - Focused Exam Vital Signs: Vital Signs Temp Pulse Resp BP Pulse Ox 10/28/20 23:32 97.5 F 80 16 135/86 100 10/28/20 22:37 97.5 F 80 16 135/86 100
== END 2020-10-29 01:01 | disposition home or self-care (01) ==
LOC: JP.ED 22:23
DX: R10.32 Left lower quadrant pain (principal); Z72.0 Tobacco use
CPT/HCPCS: 36415; 74176; 80048; 85025; 99284-25

== ENCOUNTER 2023-03-02 16:10 | Emergency (ER) | payer MEDICAID ==
[2023-03-02 16:23] VITALS: BP 135/85; PULSE 96
[2023-03-02] MEDS ORDERED: Cyclobenzaprine 10 MG Tab PO ONE (16:57)
[2023-03-02] MEDS ORDERED: Ketorolac 30 MG/ML SDV IM ONE (16:57)
== END 2023-03-02 17:26 | disposition home or self-care (01) ==
LOC: JP.ED 16:10
DX: S16.1XXA Strain of muscle, fascia and tendon at neck level, initial encounter (principal); F17.210 Nicotine dependence, cigarettes, uncomplicated; W06.XXXA Fall from bed, initial encounter
CPT/HCPCS: 96372; 99283; A9270; J1885